=== PATIENT | male | born 1950 | race Two or more races ===

== ENCOUNTER 2019-10-07 20:12 | Inpatient (IN) | payer OTHER ==
[~2019-10-07] VITALS: Ht 175.3 cm; Wt 90.3 kg
[2019-10-07] MEDS ORDERED: SODIUM CHLORIDE 0.9% 1,000 ML IVB ONE (20:53)
[2019-10-07 21:08] LABS: Hematocrit 28.8 % (41.0-53.0); Hemoglobin 9.3 g/dL (13.5-17.5); Mean Corpuscular Hemoglobin 27.8 pg (28.0-32.0); Mean Corpuscular Hgb Conc. 32.4 g/dL (32.0-36.0); Mean Corpuscular Volume 85.7 fL (80.0-100.0); Platelet Count (auto) 286 10^3/uL (140-450); Red Blood Cells 3.36 10^6/uL (4.5-5.90); White Blood Cell 12.5 10^3/uL (4.4-10.8)
[2019-10-07 21:11] LABS: Red Cell Distribution Width 22.8 % (11.8-14.3)
[2019-10-07 21:13] LABS: Basophils % (manual) 0 (0.0-2.0); Blast Cells 0; Eosinophils % (manual) 0 (0-7); Myelocytes % 0; Promyelocytes % 0; Reactive Lymphocytes 0
[2019-10-07 21:15] LABS: Albumin 2.2 g/dL (3.4-5.0); Amylase 38 U/L (25-115); Anion Gap 13 (5-15); Blood Urea Nitrogen 57 mg/dL (7-18); Calcium 10.2 mg/dL (8.5-10.1); Carbon Dioxide 13 mmol/L (21-32); Chloride 106 mmol/L (98-107); Glucose 127 mg/dL (74-106); Lipase 295 U/L (73-393); Magnesium 1.5 mg/dL (1.6-2.6); Potassium 4.3 mmol/L (3.5-5.1); Sodium 132 mmol/L (136-145)
[2019-10-07 21:22] LABS: Alanine Aminotransferase 103 U/L (16-61); Alkaline Phosphatase 511 U/L (45-117); Aspartate Aminotransferase 116 U/L (15-37); BUN/Creatinine Ratio 11.4; Bilirubin, Total 18.8 mg/dL (0.2-1.0); GFR African American 15 mL/min; GFR Non-African American 12 mL/min; Total Protein 6.5 g/dL (6.4-8.2)
[2019-10-07 21:28] LABS: INR 1.34 (0.9-1.15); Partial Thromboplastin Time 36.2 sec (23.64-32.05)
[2019-10-07 21:57] LABS: Band Neutrophils % (manual) 1; Lymphocytes % (manual) 9 (10.0-50.0); Metamyelocytes % 3; Monocytes % (manual) 9 (0-12)
[2019-10-07 22:43] LABS: Urine Amorphous Crystal FEW /hpf (None Seen); Urine Bacteria FEW /hpf (None Seen); Urine Blood 2+ /uL (Negative); Urine Hyaline Cast MOD /lpf (0 - 2); Urine Specific Gravity 1.014 (1.001-1.035); Urine WBC 35 /hpf (0 - 3)
[2019-10-08] MEDS ORDERED: cefTRIAXone 1GM/50ML D5W 50 ML IV ONE (01:00)
[2019-10-08] MEDS ORDERED: SODIUM CHLORIDE 0.9% 1,000 ML IV SCH (01:00)
[2019-10-08] MEDS ORDERED: ONDANSETRON HCL 4 MG/2 ML VIAL IV PRN (01:00)
[2019-10-08] MEDS ORDERED: hydrOXYzine HCL 10 MG TAB PO ONE (01:15)
[2019-10-08] MEDS ORDERED: MORPHINE SULF INJ 2 MG/ML SYRINGE 1ML IV PRN (01:15)
[2019-10-08] MEDS ORDERED: NITROGLYCERIN 0.4 MG SL TAB SL PRN (01:15)
[2019-10-08] MEDS: MAGNESIUM SULFATE 1GM/100ML 100 ML IV SCH ×2 (03:38→04:56)
--- NOTE | 2019-10-08 03:56 | NUR ---
Telemetry admit from ER BRIE DRISCOLL admitted to Telemetry unit, no SBAR received. Patient oriented to Violette mcgraw RN, unit, room, bed, and unit policies regarding patient care and visiting hours. Patient now on continuous telemetry monitoring, tele box # 71 and telemetry reading on arrival to unit is Sinus tach 115. Patient weighed by bedscale and encouraged to call if they need something. All questions and concerns addressed, patient verbalized understanding.
[2019-10-08 05:00] VITALS: BP 145/64
[2019-10-08 05:46] VITALS: BP 145/64
--- NOTE | 2019-10-08 06:57 | NUR ---
BOARD MIXER TENDER paged for pain medications New orders given, will put in new orders and carry out as necessary.
[2019-10-08] MEDS ORDERED: HYDROcodone-ACET 5/325MG TAB PO PRN (07:00)
[2019-10-08 08:00] VITALS: BP 136/72
[2019-10-08] MEDS ORDERED: PANTOPRAZOLE 40 MG/10 ML VIAL INJ IV SCH (10:00)
[2019-10-08 10:39] LABS: Hematocrit 28.6 % (41.0-53.0); Hemoglobin 9.1 g/dL (13.5-17.5); Mean Corpuscular Hemoglobin 27.7 pg (28.0-32.0); Mean Corpuscular Volume 86.5 fL (80.0-100.0); Platelet Count (auto) 254 10^3/uL (140-450); White Blood Cell 14.4 10^3/uL (4.4-10.8)
[2019-10-08 10:43] LABS: Red Cell Distribution Width 22.9 % (11.8-14.3)
[2019-10-08 10:44] LABS: Basophils % (manual) 0 (0.0-2.0); Blast Cells 0; Eosinophils % (manual) 0 (0-7); Metamyelocytes % 0; Promyelocytes % 0; Reactive Lymphocytes 0
[2019-10-08 10:50] LABS: Albumin 1.9 g/dL (3.4-5.0); Calcium 10.3 mg/dL (8.5-10.1); Potassium 4.1 mmol/L (3.5-5.1)
[2019-10-08 10:52] LABS: BUN/Creatinine Ratio 11.3; Bilirubin, Total 17.6 mg/dL (0.2-1.0); Total Protein 5.8 g/dL (6.4-8.2)
[2019-10-08 11:10] LABS: Band Neutrophils % (manual) 4; Lymphocytes % (manual) 6 (10.0-50.0); Monocytes % (manual) 2 (0-12); Myelocytes % 1
[2019-10-08 11:46] LABS: Creatinine, Urine 66 mg/dL (30.0-125.0); Sodium Urine 85 mmol/L (40-220)
[2019-10-08 12:00] VITALS: BP 139/71
[2019-10-08] MEDS: SODIUM BICARB 50ML SYR 75 ML in SOD CHL 0.45% 1,000 ML IV SCH (13:13)
[2019-10-08] MEDS ORDERED: PIPERACILLIN-TAZOB 2.25GM 50 ML IV SCH (14:00)
[2019-10-08] MEDS: PIPERACILLIN-TAZOB 2.25GM 50 ML IV SCH ×2 (14:19→22:40)
--- NOTE | 2019-10-08 14:30 | NUR ---
PT SEEN BY DR. Doug ERNST PT MADE AWARE HE WILL BE SCHEDULED FOR ERCP TOMORROW, PROCEDURE EXPLAINED TO THE PT, PT VERBALIZED UNDERSTANDING.
[2019-10-08 16:55] VITALS: BP 134/66
--- NOTE | 2019-10-08 19:20 | NUR ---
Opening Shift Note Assumed care of patient, awake and alert. No S/S of distress/SOB. The patient c/o abdominal pain which he rates as 5/10. Patient does not request any pain medication at the moment. Bed is locked in lowest position with call light within reach. Instructed on POC and to call for assist PRN, will continue to monitor for changes Q1hr and PRN.
[2019-10-08 22:00] VITALS: BP 127/77
[2019-10-08] MEDS: PANTOPRAZOLE 40 MG/10 ML VIAL INJ IV SCH (22:40)
[2019-10-09] MEDS: SODIUM BICARB 50ML SYR 75 ML in SOD CHL 0.45% 1,000 ML IV SCH ×2 (02:35→16:55)
[2019-10-09 05:00] VITALS: BP 142/77
--- NOTE | 2019-10-09 07:05 | NUR ---
Patient accidently pulled out his right hand IV while trying to get out of bed. Will endorse to day shift RN.
--- NOTE | 2019-10-09 07:10 | NUR ---
SPOKE TO DR. GUADALUPE Reported the MRCP results to Dr. Guadalupe. Dr. Guadalupe states that he will go ahead ERCP today. Will notify to patient.
[2019-10-09 07:29] LABS: Albumin 1.9 g/dL (3.4-5.0); Calcium 10.3 mg/dL (8.5-10.1); Potassium 4.1 mmol/L (3.5-5.1)
[2019-10-09 07:32] LABS: Hematocrit 28.8 % (41.0-53.0); Hemoglobin 9.3 g/dL (13.5-17.5); Mean Corpuscular Hemoglobin 27.3 pg (28.0-32.0); Mean Corpuscular Hgb Conc. 32.2 g/dL (32.0-36.0); Mean Corpuscular Volume 84.9 fL (80.0-100.0); Platelet Count (auto) 319 10^3/uL (140-450); Red Blood Cells 3.39 10^6/uL (4.5-5.90); White Blood Cell 16.9 10^3/uL (4.4-10.8)
[2019-10-09 07:33] LABS: BUN/Creatinine Ratio 10.8; Bilirubin, Total 18.3 mg/dL (0.2-1.0); Total Protein 5.9 g/dL (6.4-8.2)
[2019-10-09 07:43] LABS: Red Cell Distribution Width 22.9 % (11.8-14.3)
[2019-10-09 07:44] LABS: Band Neutrophils % (manual) 0; Basophils % (manual) 0 (0.0-2.0); Blast Cells 0; Eosinophils % (manual) 0 (0-7); Metamyelocytes % 0; Myelocytes % 0; Promyelocytes % 0; Reactive Lymphocytes 0
--- NOTE | 2019-10-09 07:50 | NUR ---
Opening Shift Note Assumed care of patient, awake and alert. A&O x4. No S/S of distress/SOB or pain. Safety maintained bed in lowest position, side rails up, items and call light within reach. Instructed on POC and to call for assist PRN, will continue to monitor for changes Q1hr and PRN.
[2019-10-09 08:00] VITALS: BP 113/79
[2019-10-09 08:46] LABS: Lymphocytes % (manual) 6 (10.0-50.0); Monocytes % (manual) 2 (0-12)
[2019-10-09] MEDS ORDERED: fentaNYL CITRATE 100 MCG/2 ML VL ONE (08:58)
[2019-10-09] MEDS ORDERED: MIDAZOLAM HCL 1MG/1ML-2 ML VIAL ONE (08:58)
[2019-10-09] MEDS ORDERED: PROPOFOL 10 MG/ML 20 ML IV ONE (08:59)
[2019-10-09] MEDS ORDERED: SODIUM CHLORIDE LOCK 10 ML ONE (08:59)
[2019-10-09] MEDS ORDERED: ONDANSETRON HCL 4 MG/2 ML VIAL ONE (08:59)
[2019-10-09] MEDS ORDERED: cefTRIAXone 1GM/50ML D5W 50 ML IV SCH (09:00)
--- NOTE | 2019-10-09 09:00 | NUR ---
IV insertion IV access obtained, via clean sterile technique by inserting 22 gauge catheter at LFA after 3 attempts. IV secured properly. No trauma to site. Patient tolerated well.
--- NOTE | 2019-10-09 10:15 | NUR ---
Patient brought down to OR via bed.
[2019-10-09] MEDS ORDERED: ALBUMIN 5% 250 ML IV ONE (10:26)
[2019-10-09] MEDS ORDERED: MORPHINE SULFATE 4 MG/ML SYR/VIAL IV PRN (12:00)
[2019-10-09] MEDS ORDERED: METOCLOPRAMIDE HCL 5MG/ml INJ 2ml VIAL IV PRN (12:00)
[2019-10-09] MEDS ORDERED: HYDROmorphone HCL 2 MG/ML VL IV PRN (12:00)
[2019-10-09 12:03] VITALS: BP 128/64
--- NOTE | 2019-10-09 12:30 | NUR ---
RECEIVED A CALL FROM DR CAO. PT WILL BE TRANSFERED TO HIGHER LEVEL OF CARE SOON IT'S ARRANGED. MADE AWARE OF PT'S POTASSIUM LEVEL AND FAMILY'S REQUEST FOR PHYSICAL THERAPY AND SPEECH THERAPY. PER , HE WILL TAKE CARE OF IT. Addendum: 10/09/19 at 1442 by Ameena Arias RN WRONG PT.
--- NOTE | 2019-10-09 12:31 | NUR ---
RECEIVED A CALL FROM DR CAO. PT WILL BE TRANSFERED TO HIGHER LEVEL OF CARE SOON IT'S ARRANGED.
[2019-10-09] MEDS: PIPERACILLIN-TAZOB 2.25GM 50 ML IV SCH ×3 (14:00→22:00)
--- NOTE | 2019-10-09 14:32 | NUR ---
REPORT RECEIVED FROM OR. PT WILL BE COMING BACK IN THE ROOM.
--- NOTE | 2019-10-09 14:45 | NUR ---
RECEIVED PT FROM OR VIA BED PT AWAKE, AOX4. NO DISTRESS NOTED. DENIES PAIN AT THIS TIME.
[2019-10-09] MEDS: PANTOPRAZOLE 40 MG/10 ML VIAL INJ IV SCH ×2 (15:21→22:00)
--- NOTE | 2019-10-09 15:30 | NUR ---
COVID SWAB SENT TO LAB.
[2019-10-09 17:00] VITALS: BP 97/60
--- NOTE | 2019-10-09 19:20 | NUR ---
Opening Shift Note Assumed care of patient. Patient was asleep upon entering the room but he is easily arousible. No S/S of distress/SOB or pain. Bed side commode has been placed at bedside. Dean is draining by gravity. Bed is locked in lowest position with call light within reach. Instructed on POC and to call for assist PRN, will continue to monitor for changes Q1hr and PRN.
[2019-10-09 22:00] VITALS: BP 96/51
[2019-10-10 05:30] VITALS: BP 98/70
[2019-10-10 05:58] LABS: Urine Bacteria FEW /hpf (None Seen); Urine Blood 2+ /uL (Negative); Urine Mucus FEW (None Seen); Urine Specific Gravity 1.014 (1.001-1.035); Urine WBC 10 /hpf (0 - 3); Urine WBC Clumps PRESENT /hpf (None Seen)
[2019-10-10] MEDS: PIPERACILLIN-TAZOB 2.25GM 50 ML IV SCH ×3 (06:00→21:44)
[2019-10-10 06:32] LABS: Hematocrit 27.4 % (41.0-53.0); Mean Corpuscular Hgb Conc. 32.8 g/dL (32.0-36.0); Mean Corpuscular Volume 85.3 fL (80.0-100.0); Platelet Count (auto) 298 10^3/uL (140-450); Red Blood Cells 3.21 10^6/uL (4.5-5.90)
[2019-10-10 06:35] LABS: Red Cell Distribution Width 23.6 % (11.8-14.3)
[2019-10-10 06:37] LABS: Creatinine, Urine 111 mg/dL (30.0-125.0); Sodium Urine 65 mmol/L (40-220)
[2019-10-10 06:47] LABS: Potassium 3.8 mmol/L (3.5-5.1)
[2019-10-10 06:54] LABS: Albumin 1.8 g/dL (3.4-5.0); BUN/Creatinine Ratio 11.1; Bilirubin, Total 17.6 mg/dL (0.2-1.0); Calcium 10.1 mg/dL (8.5-10.1); Total Protein 5.5 g/dL (6.4-8.2)
[2019-10-10] MEDS: SODIUM BICARB 50ML SYR 75 ML in SOD CHL 0.45% 1,000 ML IV SCH ×3 (07:15→18:00)
[2019-10-10 07:52] LABS: Band Neutrophils % (manual) 0; Basophils % (manual) 0 (0.0-2.0); Blast Cells 0; Metamyelocytes % 0; Promyelocytes % 0; Reactive Lymphocytes 0
[2019-10-10 07:53] LABS: Eosinophils % (manual) 2 (0-7); Lymphocytes % (manual) 7 (10.0-50.0); Monocytes % (manual) 1 (0-12); Myelocytes % 1
[2019-10-10 09:25] VITALS: BP 125/69
[2019-10-10] MEDS: PANTOPRAZOLE 40 MG/10 ML VIAL INJ IV SCH ×2 (10:26→21:44)
[2019-10-10 13:00] VITALS: BP 125/71
--- NOTE | 2019-10-10 14:30 | NUR ---
DR LUGO REPORTS PT NEEDS DIALYSIS. NEW ORDERS FOR DIALYSIS CATHETER PLACEMENT ON SATURDAY.
--- NOTE | 2019-10-10 14:36 | NUR ---
CALLED AND SPOKE WITH DR CAO, NOTIFIED MD DR LUGO WANTS DIALYSIS CATHETER PLACED SATURDAY. AWARE. HE REPORTS PT SHOULD DISCHARGE TOMORROW TO [facility], BUT IF HE DOESN'T THEN PROCEED WITH DIALYSIS CATHETER PLACEMENT. HE REPORTS NOT TO HOLD DC.
--- NOTE | 2019-10-10 15:20 | NUR ---
Nutrition Assessment Notes please see attached link for complete assessment Est Energy needs BW 89 [id number] kcals (23-25 kcal/kgBW), Est Protein needs: 89-97 gms/day (1.0-1.1 gm/kgBW r/t elev RFT severe hypoalb) Addendum: 10/10/19 at [address] Amended: Links added.
--- NOTE | 2019-10-10 16:23 | NUR ---
FA[place] [facility], WAS GIVEN NEW FAX NUMBER BY [facility]. NEW FAX [phone]
--- NOTE | 2019-10-10 16:43 | NUR ---
[phone] 10/10/19 - Faxed to [phone] [facility] transfer crosby face sheet, transfer order to higher level of care, labs, meds, questionnaire, imaging, consults. Contacted [facility] at [phone] . Unable to connect with a transfer and pumphouse operator provided message with contact information and nurse's station phone number.
[2019-10-10 17:00] VITALS: BP 138/68
[2019-10-10 22:00] VITALS: BP 142/77
--- NOTE | 2019-10-10 23:05 | NUR ---
IV insertion IV access obtained, via clean sterile technique by inserting 20 gauge catheter at left forearm after 1 attempt. IV secured properly. No trauma to site. Patient tolerated procedure well.
[2019-10-11 05:00] VITALS: BP 128/92
[2019-10-11] MEDS: PIPERACILLIN-TAZOB 2.25GM 50 ML IV SCH ×3 (06:35→21:56)
[2019-10-11 07:11] LABS: Hemoglobin 8.9 g/dL (13.5-17.5); Mean Corpuscular Hemoglobin 27.5 pg (28.0-32.0); Mean Corpuscular Hgb Conc. 32.9 g/dL (32.0-36.0); Mean Corpuscular Volume 83.6 fL (80.0-100.0); Platelet Count (auto) 308 10^3/uL (140-450); Red Blood Cells 3.23 10^6/uL (4.5-5.90); White Blood Cell 13.5 10^3/uL (4.4-10.8)
[2019-10-11 07:13] LABS: Red Cell Distribution Width 23.1 % (11.8-14.3)
[2019-10-11 07:14] LABS: Basophils % (manual) 0 (0.0-2.0); Blast Cells 0; Metamyelocytes % 0; Myelocytes % 0; Promyelocytes % 0; Reactive Lymphocytes 0
--- NOTE | 2019-10-11 07:30 | NUR ---
Opening Shift Note Assuming care of patient at this time. Patient is awake and alert. Patient denies pain. Patient shows no signs or symptoms of distress or shortness of breath. Instructed patient on the plan of care for today and to call for assistance as needed. Call light within reach. Will continue to round hourly and as needed.
[2019-10-11 07:32] LABS: Potassium 3.6 mmol/L (3.5-5.1)
[2019-10-11 07:43] LABS: Albumin 1.7 g/dL (3.4-5.0); BUN/Creatinine Ratio 10.9; Bilirubin, Total 16.4 mg/dL (0.2-1.0); Total Protein 5.2 g/dL (6.4-8.2)
[2019-10-11 07:56] LABS: Band Neutrophils % (manual) 3; Eosinophils % (manual) 2 (0-7); Lymphocytes % (manual) 7 (10.0-50.0); Monocytes % (manual) 9 (0-12)
[2019-10-11 09:00] VITALS: BP 107/63
[2019-10-11] MEDS ORDERED: cefTRIAXone 1GM/50ML D5W 50 ML IV SCH ×2 (09:00)
[2019-10-11] MEDS: PANTOPRAZOLE 40 MG/10 ML VIAL INJ IV SCH ×2 (09:41→21:55)
[2019-10-11] MEDS: SODIUM BICARB 50ML SYR 75 ML in SOD CHL 0.45% 1,000 ML IV SCH ×3 (10:00→19:30)
[2019-10-11 13:00] VITALS: BP 141/69
--- NOTE | 2019-10-11 15:00 | NUR ---
Transfer All requested paperwork faxed to Jen at [facility]. No notification that bed was available.
[2019-10-11 17:00] VITALS: BP 135/71
--- NOTE | 2019-10-11 19:43 | NUR ---
Closing Shift Note Patient resting in bed. No distress noted. Report given. Will endorse care to the mini shifter RN.
[2019-10-11 22:00] VITALS: BP 139/78
--- NOTE | 2019-10-11 22:07 | NUR ---
Received call from [facility]. They notified me that the patient has received a bed at [place]. He will be going to tower 3/bed 25.
--- NOTE | 2019-10-11 23:20 | NUR ---
Spoke with [facility] and gave all pertinent information. I however did not have the receiving physician for [facility] so he stated that until then the transport will be put on hold.
--- NOTE | 2019-10-11 23:30 | NUR ---
Called to report to ROBEL Dumont at [phone]. I spoke with her charge nurse and expressed that until I have a receiving physician I will not be able to complete transport. The charge nurse gave me a receiving physician which will be Dr Brian Capellan.
--- NOTE | 2019-10-11 23:32 | NUR ---
Called [facility] and gave them the receiving physician. I was told that at this time ETA is approximately 0130.
--- NOTE | 2019-10-12 01:40 | NUR ---
Discharge Transfers Patient [place] [facility] [place] [facility]. Patient is to follow up with accepting doctor at the receiving facility. Patient went with sher catheter and IV in place. Tele box was removed and sent to ICU. All belongings were taken with patient.
[2019-10-12] MEDS ORDERED: SODIUM CHL 0.9% 1000 ML BAG XX ONE (07:00)
[2019-10-12 11:12] LABS: Hepatitis B Surface Antigen Negative (Negative); Hepatitis C Antibody Negative (Negative)
[2019-10-12] MEDS ORDERED: EPOETIN ALFA 10,000 UNIT/1 ML VIAL SC ONE (21:00)
[2019-10-16] MEDS ORDERED: MORPHINE SULF INJ 2 MG/ML SYRINGE 1ML IV PRN (23:00)
[2019-10-16] MEDS ORDERED: NITROGLYCERIN 0.4 MG SL TAB SL PRN (23:00)
[2019-10-16] MEDS ORDERED: SOD CHL 0.45% 1,000 ML IV SCH (23:00)
== END 2019-10-12 01:40 | disposition short-term general hospital (02) | DRG 871 ==
LOC: EDUNIT# 20:12 → EDBD 20:12 → ER 20:15 → TELE 20:16 → TELE-WESTW 10-08 03:28
PROVIDERS: ADMIT Nurse Practitioner; ATTEND Internal Medicine
PROC: BF131ZZ Fluoroscopy of Gallbladder and Bile Ducts using Low Osmolar Contrast (ICD-10-PCS; 2019-10-09)
PROC: 0FC98ZZ Extirpation of Matter from Common Bile Duct, Via Natural or Artificial Opening Endoscopic (ICD-10-PCS; 2019-10-09)
PROC: 0F798DZ Dilation of Common Bile Duct with Intraluminal Device, Via Natural or Artificial Opening Endoscopic (ICD-10-PCS; principal; 2019-10-09 10:53)
DX: A41.9 Sepsis, unspecified organism (principal); E43 Unspecified severe protein-calorie malnutrition; D68.9 Coagulation defect, unspecified; N39.0 Urinary tract infection, site not specified; E87.2 Acidosis; C25.9 Malignant neoplasm of pancreas, unspecified; K80.11 Calculus of gallbladder with chronic cholecystitis with obstruction; N17.9 Acute kidney failure, unspecified; E87.8 Other disorders of electrolyte and fluid balance, not elsewhere classified; E86.0 Dehydration; D64.9 Anemia, unspecified; N20.0 Calculus of kidney; I12.9 Hypertensive chronic kidney disease with stage 1 through stage 4 chronic kidney disease, or unspecified chronic kidney disease; I70.8 Atherosclerosis of other arteries; K40.90 Unilateral inguinal hernia, without obstruction or gangrene, not specified as recurrent; Z82.49 Family history of ischemic heart disease and other diseases of the circulatory system; N18.3 Chronic kidney disease, stage 3 (moderate); K76.9 Liver disease, unspecified
CPT/HCPCS: 36415; 71045; 74018; 74176; 74181; 76000; 76705; 76775; 80053; 81001; 82150; 82570; 83605; 83690; 83735; 84156; 84300; 84484; 85007; 85025; 85027; 85610; 85730; 86803; 87040; 87340; 93005; 94002; 96361; 96365; C1726; C9113; G0378; J0696; J2250; J2405; J2543; J2704

== ENCOUNTER 2019-10-16 22:31 | Inpatient (IN) | payer OTHER ==
[~2019-10-16] VITALS: Ht 175.3 cm; Wt 80.2 kg
--- NOTE | 2019-10-16 23:16 | NUR ---
Telemetry admit from ER BRIE DRISCOLL admitted to Telemetry unit after SBAR received. Patient oriented to Kayla Daniel, primary RN, unit, room, bed, and unit policies regarding patient care and visiting hours. Patient now on continuous telemetry monitoring, tele box # [39] and telemetry reading on arrival to unit is [SR 84]. Patient weighed by bedscale and encouraged to call if they need something. All questions and concerns addressed, patient verbalized understanding. Note: []
--- NOTE | 2019-10-16 23:41 | NUR ---
Called/paged Dr. STEINBERG called re:DIRECT ADMISSION. MD PLACED ORDERED IN PREVIOUS ADMISSION MEDICAL FILE. WILL TRANSFER ORDER TO CURRENT MEDICAL FILE. Continue care.
[2019-10-16 23:44] VITALS: BP 149/73
[2019-10-17] MEDS ORDERED: MORPHINE SULF INJ 2 MG/ML SYRINGE 1ML IV PRN ×3
[2019-10-17] MEDS ORDERED: NITROGLYCERIN 0.4 MG SL TAB SL PRN ×2
[2019-10-17] MEDS ORDERED: ONDANSETRON HCL 4 MG/2 ML VIAL IV PRN
[2019-10-17 00:16] LABS: Basophils # (auto) 0.1 10 ^3/uL (0-0.2); Basophils % (auto) 1.2 % (0.0-2.0); Eosinophils # (auto) 0.1 10 ^3/uL (0-0.8); Eosinophils % (auto) 0.7 % (0.0-7.0); Hematocrit 27.6 % (41.0-53.0); Hemoglobin 9.2 g/dL (13.5-17.5); Lymphocytes # (auto) 3.8 10 ^3/uL (0.4-5.4); Lymphocytes % (auto) 47.5 % (10.0-50.0); Mean Corpuscular Hemoglobin 27.9 pg (28.0-32.0); Mean Corpuscular Hgb Conc. 33.2 g/dL (32.0-36.0); Mean Corpuscular Volume 84.1 fL (80.0-100.0); Monocytes # (auto) 0.5 10 ^3/uL (0-1.3); Monocytes % (auto) 6.7 % (0.0-12.0); Neutrophils # (auto) 3.5 10 ^3/uL (1.6-8.6); Neutrophils % (auto) 43.9 % (37.0-80.0); Platelet Count (auto) 241 10^3/uL (140-450); Red Blood Cells 3.28 10^6/uL (4.5-5.90); White Blood Cell 7.9 10^3/uL (4.4-10.8)
--- NOTE | 2019-10-17 00:16 | NUR ---
MRSA SWAB AND URINE SAMPLE COLLECTED AND SENT. CONTINUE TO MONITOR.
[2019-10-17 00:19] LABS: Red Cell Distribution Width 23.6 % (11.8-14.3)
[2019-10-17 00:28] LABS: INR 1.23 (0.9-1.15)
[2019-10-17 00:33] LABS: Urine Bacteria FEW /hpf (None Seen); Urine Blood 2+ /uL (Negative); Urine Mucus FEW (None Seen); Urine Specific Gravity 1.012 (1.001-1.035); Urine WBC 5 /hpf (0 - 3)
[2019-10-17] MEDS: SOD CHL 0.45% 1,000 ML IV SCH ×2 (00:39→15:06)
[2019-10-17 01:00] LABS: Albumin 1.8 g/dL (3.4-5.0); BUN/Creatinine Ratio 15.4; Calcium 9.1 mg/dL (8.5-10.1); Potassium 3.5 mmol/L (3.5-5.1)
[2019-10-17 01:03] LABS: Bilirubin, Total 13.1 mg/dL (0.2-1.0); Total Protein 5.8 g/dL (6.4-8.2)
--- NOTE | 2019-10-17 01:18 | NUR ---
MD STEINBERG CALLED, REVIEWED ON PATIENT'S MEDICAL RECORD FROM [facility]. NO EUS FOUND IN THE DOCUMENTATION. VERIFIED ON PATIENT'S DIET ORDER. NPO FOR NOW. CONTINUE TO MONITOR.
--- NOTE | 2019-10-17 02:17 | NUR ---
ASSISTED PATIENT TO BEDSIDE COMMODE. HAD BM. PATIENT TOLERATED WELL. NO S/S OF DISTRESS NOTED. CONTINUE TO MONITOR.
[2019-10-17 05:00] VITALS: BP 129/72
[2019-10-17 05:38] LABS: Basophils # (auto) 0 10 ^3/uL (0-0.2); Nucleated Red Blood Cells % 0.1 %
[2019-10-17 05:41] LABS: Basophils % (auto) 0.5 % (0.0-2.0); Eosinophils # (auto) 0 10 ^3/uL (0-0.8); Eosinophils % (auto) 0.4 % (0.0-7.0); Hematocrit 23.2 % (41.0-53.0); Lymphocytes # (auto) 3.5 10 ^3/uL (0.4-5.4); Lymphocytes % (auto) 46.3 % (10.0-50.0); Mean Corpuscular Hemoglobin 28.6 pg (28.0-32.0); Mean Corpuscular Hgb Conc. 34.5 g/dL (32.0-36.0); Mean Corpuscular Volume 83.1 fL (80.0-100.0); Monocytes # (auto) 0.4 10 ^3/uL (0-1.3); Monocytes % (auto) 5.5 % (0.0-12.0); Neutrophils # (auto) 3.5 10 ^3/uL (1.6-8.6); Neutrophils % (auto) 47.3 % (37.0-80.0); Platelet Count (auto) 206 10^3/uL (140-450); Red Blood Cells 2.79 10^6/uL (4.5-5.90); White Blood Cell 7.5 10^3/uL (4.4-10.8)
--- NOTE | 2019-10-17 05:44 | NUR ---
PATIENT SLEEPING. NO S/S OF DISTRESS NOTED. CONTINUE CARE.
[2019-10-17 05:53] LABS: Red Cell Distribution Width 23.2 % (11.8-14.3)
[2019-10-17 06:03] LABS: Potassium 3.1 mmol/L (3.5-5.1)
[2019-10-17 06:10] LABS: Albumin 1.6 g/dL (3.4-5.0); BUN/Creatinine Ratio 16.6; Bilirubin, Total 11.2 mg/dL (0.2-1.0); Calcium 8.9 mg/dL (8.5-10.1); Total Protein 5.1 g/dL (6.4-8.2)
--- NOTE | 2019-10-17 08:00 | NUR ---
ASSESSMENT NOTE PT IS ALERT ORIENTED X4, RESTING IN BED COMFORTABLY IN LOW IRWIN POSITION, GENERALIS JAUNDICE AND LARGE SOFT ABDOMEN NOTED, ABLE TO SELF REPOSITION AND VERBALIS HIS NEEDS, EDEMA 1+ NOTED ON BOTH LOWER EXTREMITIES, PAIN 0/10, CALL LIGHT WITHIN REACH
[2019-10-17 09:00] VITALS: BP 144/81
--- NOTE | 2019-10-17 09:37 | NUR ---
DR ETIENNE CALLED TO FOLLOW UP ON PT, ALL PT UPDATE GIVEN TO HIM, NEW ORDERS OBTAIN
[2019-10-17] MEDS ORDERED: POTASSIUM CHL 20 Meq TABLET PO ONE (09:45)
--- NOTE | 2019-10-17 12:00 | NUR ---
DR KOHLI IS HERE FOLLOWING UP ON PT, STATED HE IS CLEARING PT TO GO HOME AND FOLLOW UP WITH [facility]
[2019-10-17 13:01] VITALS: BP 145/70
--- NOTE | 2019-10-17 15:04 | NUR ---
SPOKE WITH DR ETIENNE MADE AWARE OF DR KOHLI RECOMMENDATION, CONTINUE AWAITING FOR THE NEPHROLOGY CONSULT
[2019-10-17 16:56] VITALS: BP 148/68
--- NOTE | 2019-10-17 17:21 | NUR ---
DR ETIENNE CALLED OVER THE PHONE WITH DISCHARGE HOME INSTRUCTION
--- NOTE | 2019-10-17 17:35 | NUR ---
PATIENT AND PATIENT DAUGHTER MADE AWARE OF THE DISCHARGE HOME
--- NOTE | 2019-10-17 18:10 | NUR ---
DINNER PT IS EATING HIS DINNER, TOLERATED WELL, CONTINUE MONITORING
--- NOTE | 2019-10-17 18:45 | NUR ---
P TOLERATED DINNER WELL, ATTEMPT TO DRESS UP PT, PT HAS SHIRT, SHOES, NO PANTS, SPOKE WITH JOANA PATIENT'S DAUGHTER, VERY CONCERN BECAUSE HER FATHER HAVE HIS KEEGAN AND HIS WALLET IN HIS PANTS, TRANSFER HER TO HER FATHER, TRYING TO FIGURE IT OUT IF THEY LEFT IT BEHIND AT [facility] OR AT HOME
--- NOTE | 2019-10-17 19:26 | NUR ---
REPORT GIVEN TO RADHA HUSTON, PT CONTINUE AWAITING FOR HIS RIDE HOME
--- NOTE | 2019-10-17 20:20 | NUR ---
Wheeled downstair to the parking lot as discharge to meet her daughter, all discharges instructions given by Natali Kay to the patient and daughter thru telephone. Tele box returned already and i.v.line removed by the day Rikki
== END 2019-10-17 20:20 | disposition home or self-care (01) | DRG 444 ==
LOC: TELE-CENTR 22:31
PROVIDERS: ADMIT Internal Medicine; ATTEND Internal Medicine
DX: K83.1 Obstruction of bile duct (principal); E43 Unspecified severe protein-calorie malnutrition; I25.10 Atherosclerotic heart disease of native coronary artery without angina pectoris; I10 Essential (primary) hypertension; K86.9 Disease of pancreas, unspecified
CPT/HCPCS: 36415; 80053; 81001; 85025; 85610; 87081; G0378